=== PATIENT | female | born 1975 | race Caucasian/White ===

== ENCOUNTER 2024-10-16 00:11 | Emergency (ER) | payer BC, SELFPAY ==
[2024-10-16 00:14] VITALS: BP 149/81
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
[2024-10-16 01:19] VITALS: BMI 24.0
[2024-10-16 01:45] LABS: Hematocrit 34.5 % (37.0-47.0); Hemoglobin 12.0 g/dL (12.0-16.0); Mean Corp Hgb Conc. 34.8 g/dL (33.0-37.0); Mean Corpuscular Volume 92.7 fL (81.0-99.0); Nucleated Red Blood Cells % 0 %; Platelet Count 240 10^3/uL (130-400); Red Cell Dist. Width 13.2 % (11.5-14.5)
[2024-10-16 01:47] LABS: Urine Character Clear (Clear)
[2024-10-16] MEDS: TORADOL 15 MG IV (01:50)
[2024-10-16 02:05] LABS: HCG, Serum Qualitative Screen Negative
[2024-10-16 02:09] LABS: ALT (SGPT) 36 U/L (0-35); AST (SGOT) 31 U/L (14-36); Albumin 4.0 g/dl (3.5-5.0); Alkaline Phosphatase 64 U/L (38-126); Blood Urea Nitrogen 18 mg/dl (7-17); Calcium 9.6 mg/dl (8.4-10.2); Carbon Dioxide 24 mmol/L (22-30); Chloride 109 mmol/L (98-107); Estimated Creatinine Clearance 98 ml/min; Glucose 106 mg/dl (70-99); Lipase 139 U/L (23-300); Potassium 3.9 mmol/L (3.5-5.1); Sodium 137 mmol/L (135-145); Total Protein 6.3 g/dl (6.3-8.2); eGFR > 60.00
[2024-10-16 02:17] LABS: Troponin I < 0.012 ng/ml
[2024-10-16 03:29] VITALS: BP 122/62
[2024-10-16 04:11] VITALS: BP 135/75
== END 2024-10-16 04:13 | disposition home or self-care (01) ==
LOC: EMR 00:11
PROVIDERS: Physician Assistant; EMERGENCY PHYSICIAN Student in an Organized Health Care Education/Training Program
DX: R10.13 Epigastric pain (principal); R00.1 Bradycardia, unspecified
CPT/HCPCS: 96374; 99284; 76700; 80053; 81003; 83690; 84484; 84703; 85025; 93005